=== PATIENT | male | born 1950 | race Caucasian/White ===

== ENCOUNTER → 2017-02-09 | Outpatient (CLI) | payer MEDICARE, OTHER ==
[~2017-02-09] MED LIST: ACID CONTROL150 M1 PO; AMITIZA; AMITIZA PO; AMITIZA24 MCG PO; ASCORBIC ACID500 MG PO; ASPIRIN; ASPIRIN PO; ASPIRIN81 M1 PO; ATENOLOL; ATENOLOL PO; ATENOLOL25 MG PO; BACTROBAN22 GM TOP; BENADRYL PO; BISACODYL EC5 M1 PO; BISACODYL10 MG/SUP3 RC; BISACODYL10 MG/SUPP; BISACODYL10 MG/SUPP PR; CALCIUM 250+D T1 TAB PO; CALCIUM 500 + D1 TAB; CALCIUM CITRATE1 T15 PO; CARDURA1 MG PO; CERTAGEN PO; CERTAVITE W/LUT1 TA1 PO; CHILDREN'S SALI30 M1; CIPRO PO; COPPER2 M1 PO; COPPER2 MG PO; CRANBERRY PO; CRANBERRY450 M1 PO; CRANBERRY475 MG PO; DEBROX OTIC DRO15 ML AU; DEXTROMETHORPHAN; DIASTAT ACUDIAL1 KIT; DIASTAT ACUDIAL1 KIT IM; DIASTAT10 MG PR; DOXAZOSIN MESYLA1 MG PO; FAST RELIEF LAX10 MG PR; FLOMAX0.4 MG; FLOMAX0.4 MG PO; FLUNISOLIDE25 ML NS; GENTLE LAXATIVE10 MG RC; GOLD BOND BODY; GOLD BOND BODY226 GM; GUAIFENESIN; K-TAB ER20 MEQ PO; KEPPRA1000 MG PO; KEPPRA500 M1 PO; KEPPRA750 MG PO; KETOCONAZOLE120 ML; KLOR-CON PO; LAMICTAL PO; LAMICTAL100 MG PO; LAMOTRIGINE100 MG PO; LAXATIVE5 M1 PO; LO-DOSE ASPIRIN81 M1 PO; LOVASTATIN20 M1 PO; LOVASTATIN20 MG PO; LYRICA PO; MAGNESIUM400 MG PO; MAPAP325 MG PO; MEVACOR; MEVACOR PO; MIACALCIN4 ML; MICRO-K; MILK OF MAGNESIA PO; MIRALAX17 G2 PO; MIRALAX17 GM PO; MIRALAX255 GM PO; MONTELUKAST SOD10 MG PO; MULTI-VITAMIN1 TAB PO; NASALIDE INHALE25 ML; NEXIUM PO; NITROGYLCERIN SUBLINGUAL; NITROSTAT0.4 MG SL; NIZORAL120 ML TOP; OCEAN45 ML NS; OXCARBAZEPINE150 M2 PO; OXCARBAZEPINE150 MG PO; OXCARBAZEPINE300 MG PO; POTASSIUM CHLO10 MEQ PO; PRILOSEC PO; PROBIOTIC1 EACH PO; RANITIDINE HCL150 M1 PO; SENNA CONCENTR8.6 MG PO; SENNA8.8 MG/5 M PO; SINGULAIR; SINGULAIR PO; SMOG ENEMA PR; TAMSULOSIN HCL0.4 MG PO; TENORMIN25 M1 PO; THERAGRAN-M 1,21 CAP PO; THERAGRAN-M PRE1 TAB PO; TRILEPTAL; TRILEPTAL PO; TRILEPTAL600 MG PO; VITAMIN C PO; VITAMIN D PO; VITAMIN D1000 UNI1 PO; VITAMIN D1000 UNI2 PO; VITAMIN D2000 UNIT PO; ZANTAC; ZELNORM; ZETIA PO; ZYRTEC PO; [UNRECOGNIZED DRUG - OTHER]; [UNRECOGNIZED DRUG - OTHER] PO
== END | disposition home or self-care (01) ==
LOC: CSSDAY 09:30
DX: M81.0 Age-related osteoporosis without current pathological fracture (principal)
CPT/HCPCS: 96372; J0897

== ENCOUNTER → 2017-03-09 | Outpatient (CLI) | payer MEDICARE, OTHER | END | disposition home or self-care (01) | LOC: CRAD 02-11 10:00 | DX: R13.10 Dysphagia, unspecified (principal); Z98.890 Other specified postprocedural states; Z97.8 Presence of other specified devices | CPT/HCPCS: 74230; 92611; G8996-GN; G8997-GN; G8998-GN ==